=== PATIENT | female | born 1960 | race Caucasian/White ===

== ENCOUNTER → 2017-03-25 | Outpatient (CLI) | payer OTHER ==
--- NOTE | 2017-03-25 17:23 | RADRPT ---
PROCEDURE: XR Left hip and pelvis. CLINICAL INDICATION: Left hip pain and pelvic pain. TECHNIQUE: 3 views. Frontal pelvis. Frontal and lateral left hip. COMPARISON: None. FINDINGS: There is no fracture or dislocation. The soft tissues are normal. The right hip is unremarkable. There are severe degenerative changes of the left hip with joint spa ce narrowing, osteophytes, subarticular sclerosis, and marked deformity of the femoral head. This i s probably due to chronic avascular necrosis with resorption superiorly. There is no lytic or blastic lesion. There is no radiopaque foreign body. IMPRESSION: 1. Normal right hip. 2. Severe degenerative changes of the left hip with associated deformity. 3. No acute abnormality. RPTAT: QQ .Delvin Alfredo MD, MD Date Time Electronically viewed and signed by .Delvin Alfredo MD, on 03/25/2017 17:23 .R/
== END | disposition home or self-care (01) ==
LOC: HKI 13:41
PROVIDERS: ATTEND Orthopaedic Surgery
DX: M25.552 Pain in left hip (principal); M25.551 Pain in right hip; M16.12 Unilateral primary osteoarthritis, left hip; M87.152 Osteonecrosis due to drugs, left femur; M87.151 Osteonecrosis due to drugs, right femur
CPT/HCPCS: 73502; Z7500; G0463